=== PATIENT | female | born 1995 | race African-American/Black ===

== ENCOUNTER 2016-04-30 12:40 | Emergency (ER) | payer OTHER ==
[2016-04-30 12:54] VITALS: BP 127/71; PULSE 95; TEMP 98.6; BMI 22.3
[2016-04-30] MEDS ORDERED: PENICILLIN G BENZATHINE 1,200,000 UNIT/2 ML PFS IM ONE (13:11)
[2016-04-30] MEDS ORDERED: PENICILLIN G BENZATHINE 2,400,000 UNIT/4 ML PFS ONE (13:14)
--- NOTE | 2016-04-30 13:30 | PDOC ---
History of Present Illness - General Chief Complaint: Sore Throat Stated Complaint: SWOLLEN TONSILS, FEVER Time Seen by Provider: 04/30/16 13:10 History Source: Patient Exam Limitations: No Limitations - History of Present Illness Initial Comments: 04/30/16 13:19 With acute onset of sore throat pain starting yesterday. States took temperature last night was 101. States has had worsened swelling to her throat, is difficulty swallowing fluids but able to drink. Timing/Duration: unsure Severity: mild, moderate Associated Symptoms: reports: denies symptoms, cough, fever/chills, nausea/ vomiting Past History - Travel Traveled outside of the country in the last 30 days: No Close contact w/someone who was outside of country & ill: No - Past Medical History Allergies/Adverse Reactions: Allergies Allergy/AdvReac Type Severity Reaction Status Date / Time No Known Allergies Allergy Verified 04/30/16 12:54 Home Medications: Ambulatory Orders NK [No Known Home Medication] 12/31/14 Other medical history: denies - Psycho/Social/Smoking Cessation Hx Suicidal Ideation: No Smoking History: Never smoked Information on smoking cessation initiated: No Hx Alcohol Use: No Drug/Substance Use Hx: No Substance Use Type: None Review of Systems - Review of Systems Able to Perform ROS?: Yes Is the patient limited Maori proficient: Yes Constitutional: Yes: Symptoms Reported, See HPI, Fever, Loss of Appetite, Malaise HEENTM: Yes: Symptoms Reported, See HPI, Nose Congestion, Throat Pain, Difficulty Swallowing, Mouth Swelling Respiratory: Yes: See HPI. No: Symptoms reported, Cough Musculoskeletal: Yes: Symptoms Reported, Muscle Pain Integumentary: Yes: See HPI. No: Symptoms Reported Neurological: Yes: See HPI. No: Symptoms reported All Other Systems: Reviewed and Negative *Physical Exam - Vital Signs Last Vital Signs Temp Pulse Resp BP Pulse Ox 98.6 F 95 H 18 127/71 99 04/30/16 12:53 04/30/16 12:53 04/30/16 12:53 04/30/16 12:53 04/30/16 12:53 - Physical Exam Comments: 04/30/16 13:35 General Appearance: Yes: Nourished, Appropriately Dressed, Apparent Distress, Moderate Distress HEENT: positive: MARIANNA, TMs Normal (congested but landmarks easily visualized), Pharyngeal Erythema, Tonsillar Exudate, Tonsillar Erythema, Nasal Congestion, Rhinorrhea. negative: Pharynx Normal Neck: positive: Tender, Supple, Lymphadenopathy (R), Lymphadenopathy (L) Respiratory/Chest: positive: Lungs Clear, Normal Breath Sounds Gastrointestinal/Abdominal: positive: Tender, Soft. 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 We'll treat with Bicillin 1.2 million units IM, no reaction after 30 minutes *DC/Admit/Observation/Transfer Diagnosis at time of Disposition: Pharyngitis Qualifiers: Pharyngitis/tonsillitis etiology: unspecified etiology Qualified Code(s): J02.9 - Acute pharyngitis, unspecified - Discharge Dispostion Disposition: HOME Condition at time of disposition: Stable Admit: No - Patient Instructions Printed Discharge Instructions: DI for Pharyngitis/Tonsillopharyngitis -- Adult Additional Instructions: Rest, drink lots of fluids: Teas, water, soups Eat cold things: Ice cream, ice pops, ice chips Saltwater gargles Steamy showers/seem to face break up mucus Avoid contact with others until fevers and pain resolved Lots of handwashing and good hygiene, this is contagious You have been treated with Bicillin LA 1.2 million units injection which is a one-time treatment for strep pharyngitis. You will not need to take any further antibiotics. Tylenol or Motrin for fever and pain Followup with private physician in one to 2 days as needed if not improving Return to emergency department for worsened symptoms, fevers, dehydration - Post Discharge Activity Work/School Note: Back to School
== END 2016-04-30 13:44 | disposition home or self-care (01) ==
LOC: JERFT 12:40
DX: J02.9 Acute pharyngitis, unspecified (principal)
CPT/HCPCS: 96372; 99281-25

== ENCOUNTER 2017-05-25 20:10 | Emergency (ER) | payer OTHER ==
--- NOTE | 2017-05-25 20:22 | PDOC ---
Rapid Medical Evaluation Time Seen by Provider: 05/25/17 20:20 Medical Evaluation: Allergies Allergy/AdvReac Type Severity Reaction Status Date / Time No Known Allergies Allergy Verified 04/30/16 12:54 05/25/17 20:20 I have performed a brief in-person evaluation of this patient. The patient presents with a chief complaint of: , pt, took pill on tuesday morning - tried to get it reversed and was prescribed "lots of progesterone", now vaginal bleeding and cramping, "large clot came out", LMP 04/05 Pertinent physical exam findings: well appearing I have ordered the following: labs, tvus The patient will proceed to the ED for further evaluation. Discharge Disposition - Diagnosis Threatened - Referrals - Patient Instructions - Post Discharge Activity
[2017-05-25 20:24] VITALS: BP 115/65; PULSE 81; TEMP 98; BMI 22.1
[2017-05-25 21:13] LABS: BASO % 1.1 % (0-2.0); EOS % 4.2 % (0-4.5); HEMATOCRIT 36.8 % (32.4-45.2); HEMOGLOBIN 12.2 GM/dL (10.7-15.3); LYMPH % 15.6 % (8-40); MCH 27.2 pg (25.7-33.7); MCHC 33.2 g/dl (32.0-36.0); MEAN CELL VOLUME 81.9 fl (80-96); MONO % 8.1 % (3.8-10.2); PLATELET COUNT 207 K/MM3 (134-434); RBC 4.49 M/mm3 (3.60-5.2); RDW 13.3 % (11.6-15.6); WHITE BLOOD COUNT 11.7 K/mm3 (4.0-10.0)
--- NOTE | 2017-05-25 21:25 | PDOC ---
History of Present Illness - General History Source: Patient Exam Limitations: No Limitations - History of Present Illness Initial Comments: 05/25/17 21:47 The patient is a 21-year-old female who is 6-weeks , , who presents to the ED with abdominal cramping and vaginal bleeding. The patient reports taking the pill on Tuesday05/21/17 and subsequently on Tuesday decided that she wanted to keep the . Since Tuesday the patient has been taking high doses of progesterone. The patient denies any fever, chills, nausea, vomiting, or diarrhea. Denies any frequency, urgency, hesitancy, or dysuria. <Shannan Dyer - Last Filed: 05/25/17 21:46> - General History Source: Patient <Ayad Mejia - Last Filed: 05/26/17 19:43> - General Chief Complaint: Vaginal Bleeding Stated Complaint: VAGINAL BLEEDING (6WKS ) Time Seen by Provider: 05/25/17 20:20 Past History <Shannan Dyer - Last Filed: 05/25/17 21:46> - Suicide/Smoking/Psychosocial Hx Smoking History: Never smoked Have you smoked in the past 12 months: No Information on smoking cessation initiated: No Hx Alcohol Use: No Drug/Substance Use Hx: No Substance Use Type: None <Ayad Mejia - Last Filed: 05/26/17 19:43> - Past Medical History Allergies/Adverse Reactions: Allergies Allergy/AdvReac Type Severity Reaction Status Date / Time No Known Allergies Allergy Verified 05/26/17 18:44 Home Medications: Ambulatory Orders NK [No Known Home Medication] 12/31/14 Review of Systems - Review of Systems Able to Perform ROS?: Yes Comments:: 05/25/17 21:47 CONSTITUTIONAL: Absent: fever, chills, diaphoresis, generalized weakness, malaise, loss of appetite HEENT: Absent: rhinorrhea, nasal congestion, throat pain, throat swelling, difficulty swallowing, mouth swelling, ear pain, eye pain, visual Changes CARDIOVASCULAR: Absent: chest pain, syncope, palpitations, irregular heart rate, lightheadedness , peripheral edema RESPIRATORY: Absent: cough, shortness of breath, dyspnea with exertion, orthopnea, wheezing, stridor, hemoptysis GASTROINTESTINAL: Present: (+)Abdominal cramping Absent: abdominal distension, nausea, vomiting, diarrhea, constipation, melena, hematochezia GENITOURINARY: Present: (+)Vaginal bleeding. Absent: dysuria, frequency, urgency, hesitancy, hematuria, flank pain, genital pain MUSCULOSKELETAL: Absent: myalgia, arthralgia, joint swelling SKIN: Absent: rash, itching, pallor HEMATOLOGIC/IMMUNOLOGIC: Absent: easy bleeding, easy bruising, lymphadenopathy, frequent infections ENDOCRINE: Absent: unexplained weight gain, unexplained weight loss, heat intolerance, cold intolerance NEUROLOGIC: Absent: headache, focal weakness or paresthesias, dizziness, unsteady gait, seizure, mental status changes, bladder or bowel incontinence PSYCHIATRIC: Absent: anxiety, depression, suicidal or homicidal ideation, hallucinations. <Shannan Dyer - Last Filed: 05/25/17 21:46> *Physical Exam - Vital Signs Last Vital Signs Temp Pulse Resp BP Pulse Ox 98.0 F 81 16 115/65 100 05/25/17 20:21 05/25/17 20:21 05/25/17 20:21 05/25/17 20:21 05/25/17 20:21 - Physical Exam Comments: 05/25/17 21:48 GENERAL: Well developed, well nourished. Awake and alert. No acute distress. HEENT: Normocephalic, atraumatic. PERRLA, EOMI. No conjunctival pallor. Sclera are non- icteric. Moist mucous membranes. Oropharynx is clear. NECK: Supple. Full ROM. No JVD. Carotid pulses 2+ and symmetric, without bruits. No thyromegaly. No lymphadenopathy. CARDIOVASCULAR: Regular rate and rhythm. No murmurs, rubs, or gallops. Distal pulses are 2+ and symmetric. PULMONARY: No evidence of respiratory distress. Lungs clear to auscultation bilaterally. No wheezing, rales or rhonchi. ABDOMINAL: Soft. Non-tender. Non-distended. No rebound or guarding. No organomegaly. Normoactive bowel sounds. PELVIC: Will defer to pelvic US. MUSCULOSKELETAL Normal range of motion at all joints. No bony deformities or tenderness. No CVA tenderness. EXTREMITIES: No cyanosis. No clubbing. No edema. No calf tenderness. SKIN: Warm and dry. Normal capillary refill. No rashes. No jaundice. NEUROLOGICAL: Alert, awake, appropriate. PSYCHIATRIC: Cooperative. Good eye contact. Appropriate mood and affect. <Shannan Dyer - Last Filed: 05/25/17 21:46> - Vital Signs Last Vital Signs Temp Pulse Resp BP Pulse Ox 98.0 F 81 16 115/65 100 05/25/17 20:21 05/25/17 20:21 05/25/17 20:21 05/25/17 20:21 05/25/17 20:21 <Ayad Mejia - Last Filed: 05/26/17 19:43> ED Treatment Course - LABORATORY CBC & Chemistry Diagram: 05/25/17 21:08 05/25/17 21:08 - ADDITIONAL ORDERS Additional order review: 05/25/17 21:08 RBC 4.49 MCV 81.9 MCHC 33.2 RDW 13.3 MPV 8.0 Neutrophils % 71.0 Lymphocytes % 15.6 Monocytes % 8.1 Eosinophils % 4.2 Basophils % 1.1 <Shannan Dyer - Last Filed: 05/25/17 21:46> - LABORATORY CBC & Chemistry Diagram: 05/25/17 21:08 05/25/17 21:08 - ADDITIONAL ORDERS Additional order review: 05/25/17 21:08 RBC 4.49 MCV 81.9 MCHC 33.2 RDW 13.3 MPV 8.0 Neutrophils % 71.0 Lymphocytes % 15.6 Monocytes % 8.1 Eosinophils % 4.2 Basophils % 1.1 <Ayad Mejia - Last Filed: 05/26/17 19:43> Medical Decision Making - Medical Decision Making 05/26/17 19:43 Dr. Mejia: The scribe's documentation has been prepared under my direction and personally reviewed by me in its entirery. I confirm that the note above accurately reflects all work, treatment, procedures, and medical decision making performed by me. <Ayad Mejia - Last Filed: 05/26/17 19:43> *DC/Admit/Observation/Transfer - Attestations Scribe Attestion: 05/25/17 21:50 Documentation prepared by Shannan Dyer, acting as medical information officer for Ayad Mejia MD. <Shannan Dyer - Last Filed: 05/25/17 21:46> - Discharge Dispostion Admit: No <Ayad Mejia - Last Filed: 05/26/17 19:43> Diagnosis at time of Disposition: Threatened - Discharge Dispostion Disposition: HOME Condition at time of disposition: Stable - Referrals Referrals: Tru Barragan [Primary Care Provider] - - Patient Instructions Printed Discharge Instructions: DI for Threatened Additional Instructions: Please follow up with your criminal analyst tomorrow.. No heavy lifting or sexual relations until your criminal analyst says all is good. - Post Discharge Activity Forms/Work/School Notes: Back to Work
[2017-05-25 21:42] LABS: ALBUMIN 3.7 g/dl (3.4-5.0); ANION GAP 4 (8-16); BLOOD UREA NITROGEN 9 mg/dL (7-18); CALCIUM 8.9 mg/dL (8.5-10.1); CHLORIDE 103 mmol/L (98-107); CO2 28 mmol/L (21-32); CREATININE 0.5 mg/dL (0.55-1.02); GLUCOSE,RANDOM 87 mg/dL (74-106); POTASSIUM 3.9 mmol/L (3.5-5.1); SGOT/AST 18 U/L (15-37); SGPT/ALT 28 U/L (12-78); SODIUM 135 mmol/L (136-145); TOT PROT 7.7 g/dl (6.4-8.2)
[2017-05-25 21:59] LABS: ALK PHOS 43 U/L (45-117)
[2017-05-25 22:01] LABS: BILIRUBIN,TOTAL < 0.1 mg/dL (0.2-1.0)
== END 2017-05-25 23:26 | disposition home or self-care (01) ==
LOC: JER 20:10
DX: O26.891 Other specified pregnancy related conditions, first trimester (principal); O20.0 Threatened abortion; Z3A.01 Less than 8 weeks gestation of pregnancy
CPT/HCPCS: 36415; 76817-TC; 80053; 84702; 85025; 86850; 86900; 86901; 99282-25

== ENCOUNTER 2017-05-26 18:34 | Inpatient (IN) | payer OTHER ==
[2017-05-26 18:44] VITALS: BMI 23.0
--- NOTE | 2017-05-26 18:44 | PDOC ---
Rapid Medical Evaluation Chief Complaint: Vaginal Bleeding Time Seen by Provider: 05/26/17 18:41 Medical Evaluation: Allergies Allergy/AdvReac Type Severity Reaction Status Date / Time No Known Allergies Allergy Verified 05/25/17 20:24 05/26/17 18:43 I have performed a brief in-person evaluation of this patient. The patient presents with a chief complaint of: repeat visit, 6 wks , seen yesterday for vaginal bleeding and cramping, "large clot came out", LMP , US showed twin with 1 demise Pertinent physical exam findings: uncomfortable appearing I have ordered the following: labs, tvus The patient will proceed to the ED for further evaluation. Discharge Disposition - Diagnosis Miscarriage - Referrals - Patient Instructions - Post Discharge Activity
--- NOTE | 2017-05-26 20:14 | PDOC ---
History of Present Illness - General Chief Complaint: Vaginal Bleeding Stated Complaint: VAGINAL BLEEDING Time Seen by Provider: 05/26/17 18:41 - History of Present Illness Initial Comments: 05/26/17 22:43 21-year-old female with 8 week twin and demise twin A currently on progesterone after taking " pills" to miscarry returns to the ER today with severe vaginal bleeding. Patient was seen by WASHTUB WORKER at [facility] and was advised to follow-up within 1 week. Patient also reports some left pelvic pain. Denies fever/ chills, NVD, Abdominal pain Patient was seen in the ED yesterday fro similar complaints. Past History - Past Medical History Allergies/Adverse Reactions: Allergies Allergy/AdvReac Type Severity Reaction Status Date / Time No Known Allergies Allergy Verified 05/26/17 18:44 Home Medications: Ambulatory Orders NK [No Known Home Medication] 12/31/14 COPD: No DVT: No - Reproductive History (#): 1 Para: 0 Therapeutic (s) & number: No Spontaneous : 0 - Suicide/Smoking/Psychosocial Hx Smoking History: Never smoked Have you smoked in the past 12 months: No Information on smoking cessation initiated: No Hx Alcohol Use: No Drug/Substance Use Hx: No Substance Use Type: None Review of Systems - Review of Systems Able to Perform ROS?: Yes Is the patient limited Khmer proficient: No Constitutional: No: Symptoms Reported, See HPI, Chills, Diaphoresis, Fever, Loss of Appetite, Malaise, Night Sweats, Weakness, Weight Stable, Unintentional Wgt. Loss, Unexplained wgt Loss, Other ABD/GI: Yes: Abdominal cramping : No: Symptoms Reported, See HPI, Burning, Dysuria, Discharge, Frequency, Flank Pain, Hematuria, Incontinence, Pain, Urgency, Testicular Mass, Testicular Swelling, Lesions, Testicular Pain, Other *Physical Exam - Vital Signs Last Vital Signs Temp Pulse Resp BP Pulse Ox 97.9 F 86 18 117/66 100 05/26/17 18:42 05/26/17 18:42 05/26/17 18:42 05/26/17 18:42 05/26/17 18:42 - Physical Exam General Appearance: Yes: Appropriately Dressed Respiratory/Chest: positive: Lungs Clear, Normal Breath Sounds Female Pelvic Exam: positive: normal external exam, adnexal tenderness (left adnexal tenderness), vaginal bleeding (with clots in vaginal vault. ), other ( cervical os ~ 1 cm open) Gastrointestinal/Abdominal: positive: Normal Bowel Sounds, Soft. 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 mccabe. recommends d/c at this time if hemodynamically stable. recommends outpatient follow up. 05/26/17 21:53 hgb 11.2 will repeat at 11.30 pm. is stabel will dc home with strict return precaution 05/27/17 01:[address] mccabe . recommends pitocin 20 unit in 1000ml to run at 150 ml / hr. likely need admission if products of conception is retained. 05/27/17 03:46 patient reports cramping. + vaginal bleeding and large clots. will admit to the hospital for inpatient management. patient admitted under Dr. Iniguez's service, *DC/Admit/Observation/Transfer Diagnosis at time of Disposition: Miscarriage, Vaginal bleeding - Discharge Dispostion Admit: Yes - Referrals - Patient Instructions - Post Discharge Activity
[2017-05-26 20:17] LABS: BASO % 0.3 % (0-2.0); EOS % 1.6 % (0-4.5); HEMATOCRIT 33.4 % (32.4-45.2); HEMOGLOBIN 11.2 GM/dL (10.7-15.3); LYMPH % 6.8 % (8-40); MCH 27.5 pg (25.7-33.7); MCHC 33.5 g/dl (32.0-36.0); MEAN CELL VOLUME 81.9 fl (80-96); MEAN PLT VOLUME 8.8 fl (7.5-11.1); MONO % 5.5 % (3.8-10.2); NEUT % 85.8 % (42.8-82.8); PLATELET COUNT 198 K/MM3 (134-434); RBC 4.07 M/mm3 (3.60-5.2); RDW 13.6 % (11.6-15.6); WHITE BLOOD COUNT 14.1 K/mm3 (4.0-10.0)
[2017-05-26] MEDS ORDERED: ACETAMINOPHEN 1000 MG/100 ML VIAL (NON FORMULARY) IVPB ONE (20:36)
[2017-05-26] MEDS ORDERED: SODIUM CHLORIDE 1,000 ML IV STA (20:36)
[2017-05-26] MEDS ORDERED: ACETAMINOPHEN INJECTION 100 ML IVPB ONE (20:49)
[2017-05-26 22:10] LABS: URINE APPEARANCE SLCLOUDY; URINE BILIRUBIN NEGATIVE (<2.0 mg/dL); URINE BLOOD 3+ (NEGATIVE); URINE COLOR LTYELLOW; URINE GLUCOSE (UA) NEGATIVE (NEGATIVE); URINE KETONE TRACE (NEGATIVE); URINE LEUK ESTERASE NEGATIVE (NEGATIVE); URINE NITRITE NEGATIVE (NEGATIVE); URINE PROTEIN NEGATIVE (NEGATIVE); URINE UROBILINOGEN NEGATIVE mg/dL (0.2-1.0)
[2017-05-26 22:14] LABS: EPI CELLS RARE /HPF (FEW); URINE MUCUS RARE
[2017-05-26] MEDS ORDERED: morphine CARPU-JECT 4 MG/1 ML DISP.SYRIN IVPUSH ONE (22:26)
[2017-05-26] MEDS ORDERED: morphine SULFATE 4 MG/ML VIAL ONE (22:29)
[2017-05-27 00:59] LABS: HEMATOCRIT 28.2 % (32.4-45.2); HEMOGLOBIN 9.3 GM/dL (10.7-15.3); MCH 27.1 pg (25.7-33.7); MCHC 33.1 g/dl (32.0-36.0); MEAN CELL VOLUME 81.9 fl (80-96); MEAN PLT VOLUME 8.1 fl (7.5-11.1); PLATELET COUNT 178 K/MM3 (134-434); RBC 3.45 M/mm3 (3.60-5.2); RDW 13.3 % (11.6-15.6); WHITE BLOOD COUNT 13.3 K/mm3 (4.0-10.0)
[2017-05-27] MEDS ORDERED: OXYTOCIN 20 UNITS in 0.9% NS 20 UNIT/1,000 ML INFUS.BAG IV SCH ×2 (01:30→08:45)
[2017-05-27] MEDS ORDERED: HYDROmorphone HCL CARPU-JECT 1 MG/1 ML DISP.SYRIN IVPUSH ONE (01:47)
[2017-05-27] MEDS ORDERED: morphine CARPU-JECT 4 MG/1 ML DISP.SYRIN IVPUSH ONE (02:02)
[2017-05-27] MEDS ORDERED: OXYTOCIN 10 UNITS/ML VIAL ONE (02:02)
[2017-05-27] MEDS ORDERED: morphine SULFATE 4 MG/ML VIAL ONE (02:06)
[2017-05-27] MEDS ORDERED: ACETAMINOPHEN 1000 MG/100 ML VIAL (NON FORMULARY) IVPB ONE (06:20)
--- NOTE | 2017-05-27 06:29 | HP ---
Past Medical History - Primary Care Physician PCP:: Gurmeet Ferrera - Admission Chief Complaint: twin , 6 weeks, impending , vaginal bleeding History of Present Illness: 21 yo f with twing 6 weeks, c/o vaginal bleeding and clots with cramps ,sono twins ,non viable low uterine segment History Source: Patient Limitations to Obtaining History: No Limitations - Past Medical History ...: 1 ...Para: 0 Heme/Onc: Yes: Anemia - Past Surgical History Hx Myomectomy: No Hx Transabdominal Cerclage: No - Smoking History Smoking history: Never smoked Have you smoked in the past 12 months: No - Alcohol/Substance Use Hx Alcohol Use: No - Social History Usual Living Arrangement: Yes: With Spouse History of Recent Travel: No Home Medications - Allergies Allergies/Adverse Reactions: Allergies Allergy/AdvReac Type Severity Reaction Status Date / Time No Known Allergies Allergy Verified 05/26/17 18:44 - Home Medications Home Medications: Ambulatory Orders NK [No Known Home Medication] 12/31/14 Review of Systems - Review of Systems Constitutional: reports: No Symptoms Eyes: reports: No Symptoms HENT: reports: No Symptoms Neck: reports: No Symptoms Cardiovascular: reports: No Symptoms Respiratory: reports: No Symptoms Gastrointestinal: reports: Abdominal Pain Genitourinary: reports: No Symptoms, Vaginal Bleeding Breasts: reports: No Symptoms Reported Musculoskeletal: reports: No Symptoms Integumentary: reports: No Symptoms Neurological: reports: No Symptoms Endocrine: reports: No Symptoms Hematology/Lymphatic: reports: No Symptoms Psychiatric: reports: No Symptoms Physical Exam-VERTICAL BORER Vital Signs: Vital Signs Temperature 97.9 F 05/27/17 05:49 Pulse Rate 79 05/27/17 05:49 Respiratory Rate 20 05/27/17 05:49 Blood Pressure 98/55 05/27/17 05:49 O2 Sat by Pulse Oximetry (%) 100 05/26/17 23:12 Constitutional: Yes: Well Nourished, No Distress, Calm Eyes: Yes: WNL, Conjunctiva Clear, EOM Intact HENT: Yes: WNL, Atraumatic, Normocephalic Neck: Yes: WNL, Supple, Trachea Midline Cardiovascular: Yes: WNL, Regular Rate and Rhythm Respiratory: Yes: WNL, Regular, CTA Bilaterally Gastrointestinal: Yes: WNL ...Rectal Exam: Yes: WNL Renal/: Yes: WNL Vaginal Exam: Yes: Bleeding Cervix: Yes: Bleeding (os open, with POC at os) Uterus: Yes: Enlarged (8 weeks, tender) Adnexa: Not Palpable: Left, Right Breast(s): Yes: WNL Musculoskeletal: Yes: WNL Extremities: Yes: WNL Edema: No Integumentary: Yes: WNL Neurological: Yes: WNL, Alert, Oriented ...Motor Strength: WNL Psychiatric: Yes: WNL, Alert, Oriented Labs: CBC, BMP 05/27/17 00:48 Problem List - Problem (1) Miscarriage Code(s): O03.9 - COMPLETE OR UNSP SPONTANEOUS WITHOUT COMPLICATION (2) Anemia Code(s): D64.9 - ANEMIA, UNSPECIFIED Qualifiers: Anemia type: iron deficiency Assessment/Plan plan admit, pitocin, , rba discussed, if does not pass tissue, cont .to bleed needs D&C
[2017-05-27] MEDS ORDERED: ONDANSETRON 4 MG/2 ML VIAL IVPUSH PRN ×2 (08:41→08:53)
[2017-05-27] MEDS ORDERED: IBUPROFEN 800 MG/8 ML IJ IVPB PRN (08:41)
[2017-05-27] MEDS ORDERED: IBUPROFEN 600 MG TABLET (FP) PO PRN (08:41)
[2017-05-27] MEDS ORDERED: oxyCODONE HCL 5 MG TABLET PO PRN (08:41)
[2017-05-27] MEDS ORDERED: ELECTROLYTE-148 SOLN 1,000 ML IV SCH (08:45)
[2017-05-27] MEDS ORDERED: MIDAZOLAM HCL 2 MG/2 ML SINGLE DOSE VIAL ONE (08:58)
[2017-05-27] MEDS ORDERED: LACTATED RINGERS SOLUTION 1,000 ML IV SCH (09:00)
[2017-05-27] MEDS ORDERED: PROPOFOL 20 ML ONE (09:01)
[2017-05-27] MEDS ORDERED: SUCCINYLCHOLINE CHLORIDE 200 MG/10 ML VIAL ONE (09:02)
[2017-05-27] MEDS ORDERED: ceFAZolin SODIUM 1 GM VIAL IVPB ONE (09:07)
[2017-05-27] MEDS ORDERED: DEXAMETHASONE SOD PHOSPHATE 4 MG/1 ML VIAL ONE (09:08)
[2017-05-27] MEDS ORDERED: LIDOCAINE HCL/PF 2% SDV 5ML VIAL ONE (09:08)
[2017-05-27] MEDS ORDERED: ceFAZolin SODIUM 1 GM VIAL ONE (09:08)
[2017-05-27] MEDS ORDERED: KETOROLAC TROMETHAMINE 30 MG/1 ML VIAL ONE (09:08)
[2017-05-27 11:29] VITALS: PULSE 84
[2017-05-27 14:27] VITALS: BP 102/58; TEMP 98.3
--- NOTE | 2017-05-30 14:55 | PATH ---
Surgical Pathology Report Patient Name: ERAM AGUAYO Med. Rec. 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 Specimen(s) Received PRODUCTS OF CONCEPTION Clinical History Threatened Final Diagnosis PRODUCTS OF CONCEPTION, SUCTION DILATATION AND CURETTAGE: IMMATURE CHORIONIC VILLI, DECIDUA, AND GESTATIONAL ENDOMETRIUM CONSISTENT WITH PRODUCTS OF CONCEPTION. Electronically Signed Steph Purvis M.D. Gross Description Received in formalin labeled "contents of conception," is an 11.5 x 11.0 x 1.2 cm aggregate of red soft tissue fragments admixed with blood clot. No definite villous tissue or somatic tissue is identified. A strategic partnership representative portion is submitted in 3 cassettes. /05/27/[address] [facility]/05/27/2017
--- NOTE | 2017-05-31 12:57 | OP ---
DATE OF OPERATION: 05/27/2017 PREOPERATIVE DIAGNOSIS: Twin 6 weeks, impending , vaginal bleeding, and anemia. POSTOPERATIVE DIAGNOSIS: Twin 6 weeks, impending , vaginal bleeding, and anemia. PROCEDURE: Suction curettage. SURGEON: Gurmeet Ferrera MD ANESTHESIA: General. ESTIMATED BLOOD LOSS: 150 mL. DESCRIPTION OF PROCEDURE: The patient was taken to the operating room under adequate general anesthesia. Examination under anesthesia revealed external genitalia to be normal. Vagina some moderate bleeding from os. Os was opened. Blood clot was seen at the os. Uterus was 8 weeks' size. Adnexa, no masses were palpable. Then with a polyp forceps, the products of conception was removed from the os and lower uterine segment, and suction was introduced into the uterine cavity, and the contents were suctioned. The patient tolerated the procedure well and left the OR in good condition. GURMEET FERRERA M.D. [id number]
== END 2017-05-27 15:15 | disposition home or self-care (01) | DRG 544 ==
LOC: JER 18:34 → JERBED 21:57 → OBSVTOIN 21:57 → J3W 05-27 05:23
PROVIDERS: ADMIT Internal Medicine; ATTEND Family Medicine
PROC: 10D17ZZ Extraction of Products of Conception, Retained, Via Natural or Artificial Opening (ICD-10-PCS; principal; 2017-05-27 10:00)
DX: O03.4 Incomplete spontaneous abortion without complication (principal); D50.9 Iron deficiency anemia, unspecified
CPT/HCPCS: 36415; 76817-TC; 81003; 81015; 84702; 85025; 85027; 86850; 86900; 86901; 87086; 88305-TC; 94760; 99284-25; J0131; J7030

== ENCOUNTER 2018-03-22 09:21 | Emergency (ER) | payer OTHER ==
[2018-03-22 09:26] VITALS: BP 109/56; PULSE 73; TEMP 98; BMI 22.3
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
== END 2018-03-22 12:02 | disposition home or self-care (01) ==
LOC: JERFT 09:21
DX: M54.5 Low back pain (principal); S13.4XXA Sprain of ligaments of cervical spine, initial encounter; V43.62XA Car passenger injured in collision with other type car in traffic accident, initial encounter; Y93.89 Activity, other specified; Y92.410 Unspecified street and highway as the place of occurrence of the external cause
CPT/HCPCS: 72050-TC-FY; 72100-TC-FY; 84703; 99281-25

== ENCOUNTER 2018-04-18 09:16 | Day surgery (SDC) | payer OTHER ==
[2018-04-18 09:30] VITALS: BMI 23.1
--- NOTE | 2018-04-18 10:14 | PDOC ---
History of Present Illness - General Chief Complaint: Bone Injury Stated Complaint: LF HAND INJURY Time Seen by Provider: 04/18/18 09:34 History Source: Patient Exam Limitations: No Limitations Past History - Travel Traveled outside of the country in the last 30 days: No Close contact w/someone who was outside of country & ill: No - Past Medical History Allergies/Adverse Reactions: Allergies Allergy/AdvReac Type Severity Reaction Status Date / Time No Known Allergies Allergy Verified 04/18/18 09:30 Home Medications: Ambulatory Orders Cephalexin [Keflex] 500 mg PO QID 5 Days #20 capsule 04/18/18 Oxycodone HCl/Acetaminophen [Percocet 5/325 -] 1 - 2 tab PO Q6H #40 tab MDD 5 Anemia: No Asthma: No Cancer: No Cardiac Disorders: No CVA: No COPD: No CHF: No DVT: No Dementia: No Diabetes: No GI Disorders: No Disorders: No HTN: No Hypercholesterolemia: No Liver Disease: No Seizures: No Thyroid Disease: No - Surgical History Abdominal Surgery: No Appendectomy: No Cardiac Surgery: No Cholecystectomy: No Lung Surgery: No Neurologic Surgery: No Orthopedic Surgery: No - Reproductive History (#): 1 Para: 0 Therapeutic (s) & number: No Spontaneous : 0 - Suicide/Smoking/Psychosocial Hx Smoking History: Never smoked Have you smoked in the past 12 months: No Hx Alcohol Use: No Drug/Substance Use Hx: No Substance Use Type: None Review of Systems - Review of Systems Able to Perform ROS?: Yes Comments:: 04/18/18 12:42 CONSTITUTIONAL: Absent: fever, chills, diaphoresis, generalized weakness, malaise, loss of appetite MUSCULOSKELETAL: Present: L 3rd finger pain and bleeding SKIN: Present: laceration Absent: rash, itching, pallor HEMATOLOGIC/IMMUNOLOGIC: Absent: easy bleeding, easy bruising, lymphadenopathy, frequent infections ENDOCRINE: Absent: unexplained weight gain, unexplained weight loss, heat intolerance, cold intolerance NEUROLOGIC: Absent: headache, focal weakness or paresthesias, dizziness, unsteady gait, seizure, mental status changes, bladder or bowel incontinence PSYCHIATRIC: Absent: anxiety, depression, suicidal or homicidal ideation, hallucinations. 04/18/18 12:44 Is the patient limited Latvian proficient: No *Physical Exam - Vital Signs Last Vital Signs Temp Pulse Resp BP Pulse Ox 97.5 F L 89 18 118/69 100 04/18/18 09:29 04/18/18 09:29 04/18/18 09:29 04/18/18 09:29 04/18/18 09:29 - Physical Exam Comments: 04/18/18 12:45 GENERAL: The patient is awake, alert, and fully oriented, in no acute distress. HEAD: Normal with no signs of trauma. EYES: Pupils equal, round and reactive to light, extraocular movements intact, sclera anicteric, conjunctiva clear. EXTREMITIES: Normal range of motion, no edema. NEUROLOGICAL: Normal speech, normal gait. PSYCH: Normal mood, normal affect. SKIN: Macerated distal 3rd nail bed. Nail ripped from nail bed. Wound irragated and explored. Open jaqueline fracture. Warm, Dry, normal turgor, no rashes or lesions noted. Moderate Sedation - Procedure Monitoring Vital Signs: Procedure Monitoring Vital Signs Temperature 97.5 F L 04/18/18 09:29 Pulse Rate 89 04/18/18 09:29 Respiratory Rate 18 04/18/18 09:29 Blood Pressure 118/69 04/18/18 09:29 O2 Sat by Pulse Oximetry (%) 100 04/18/18 09:29 ED Treatment Course - LABORATORY CBC & Chemistry Diagram: 04/18/18 11:37 04/18/18 11:37 Medical Decision Making - Medical Decision Making 04/18/18 12:33 Patient is a 22-year-old female in no past medical history who presents to the ER today for left third finger pain. Patient states that she works at the [employer]. 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 She states that it immediately started bleeding. She noticed that the nail had been ripped from the finger. She states that the pain is a 10 out of 10. Denies numbness and tingling in the extremity, weakness the extremity, fevers and chills. Patient does not murmur the date of her last tetanus shot. Last oral intake was 8 PM last night. A: L 3rd finger pain X-ray Digital block, Finger tournaquet applied Stellate laceration at the base of the nail bed with open jaqueline fracture, unable to correctly approximate laceration at this time P: Hand surgery called; Dr. Horton will take to OR for VY flap Tetanus updated 1 gram ancef given Pre-op labs drawn Admitted to [facility] to Dr. Horton *DC/Admit/Observation/Transfer Diagnosis at time of Disposition: Open fracture of tuft of distal phalanx of finger - Discharge Dispostion Condition at time of disposition: Improved Decision to Admit order: Yes - Prescriptions - Referrals - Patient Instructions - Post Discharge Activity
[2018-04-18] MEDS ORDERED: IBUPROFEN 600 MG TABLET (FP) PO ONE ×2 (10:15→10:52)
[2018-04-18] MEDS ORDERED: DIPHTH,PERTUSS(ACELL),TET 0.5 ML DISP.SYRIN IM ONE ×2 (10:16→10:53)
[2018-04-18] MEDS ORDERED: CEFAZOLIN 1 GM in DEXTROSE 5%-WATER - 50 ML IVPB ONE (10:42)
[2018-04-18] MEDS ORDERED: CEFAZOLIN 1 GM/D5W 1 GM/50 ML BAG ONE (10:55)
[2018-04-18 12:06] LABS: BASO % 0.7 % (0-2.0); EOS % 4.3 % (0-4.5); HEMATOCRIT 36.3 % (32.4-45.2); HEMOGLOBIN 12.3 GM/dL (10.7-15.3); LYMPH % 15.9 % (8-40); MCH 27.7 pg (25.7-33.7); MCHC 33.9 g/dl (32.0-36.0); MEAN CELL VOLUME 81.7 fl (80-96); MEAN PLT VOLUME 8.7 fl (7.5-11.1); MONO % 6.5 % (3.8-10.2); NEUT % 72.6 % (42.8-82.8); PLATELET COUNT 203 K/MM3 (134-434); RBC 4.44 M/mm3 (3.60-5.2); RDW 14.2 % (11.6-15.6); WHITE BLOOD COUNT 6.3 K/mm3 (4.0-10.0)
[2018-04-18] MEDS ORDERED: LACTATED RINGERS SOLUTION 1,000 ML IV SCH ×2 (12:15→16:00)
[2018-04-18 12:28] LABS: INR 0.98 (0.83-1.09); PROTHROMBIN TIME (PATIENT) 11.6 SEC (9.7-13.0)
--- NOTE | 2018-04-18 12:28 | DS ---
Physical Examination Vital Signs: Vital Signs Temperature 97.5 F L 04/18/18 09:29 Pulse Rate 89 04/18/18 09:29 Respiratory Rate 18 04/18/18 09:29 Blood Pressure 118/69 04/18/18 09:29 O2 Sat by Pulse Oximetry (%) 100 04/18/18 09:29 Findings/Remarks: stable post opertively, tolertaing diet Constitutional: Yes: Well Nourished, No Distress, Calm Eyes: Yes: Conjunctiva Clear, EOM Intact HENT: Yes: Atraumatic, Normocephalic Neck: Yes: Supple, Trachea Midline Cardiovascular: Yes: Regular Rate and Rhythm, S1, S2 Respiratory: Yes: Regular, CTA Bilaterally Gastrointestinal: Yes: Normal Bowel Sounds, Soft. No: Abdomen, Obese, Tenderness ...Rectal Exam: Yes: Deferred Renal/: No: CVA Tenderness - Left, CVA Tenderness - Right Extremities: No: Cool, Cyanosis Edema: No Peripheral Pulses WNL: Yes Peripheral Pulses: Left Radial: 2+, Right Radial: 2+, Left Doralis Pedis: 2+, Right Dorsalis Pedis: 2+, Left Femoral: 2+, Right Femoral: 2+ Wound/Incision: Yes: Clean/Dry, Well Approximated, Dressing Dry and Intact Neurological: Yes: Alert, Oriented Psychiatric: Yes: Alert, Oriented Labs: CBC, BMP 04/18/18 11:37 Discharge Summary Reason For Visit: OPEN FRACTURE OF TUFT OF DISTAL PHALANX OF FINGER Current Active Problems Open fracture of tuft of distal phalanx of finger (Acute) Procedures: Principal: left middle finger V-Y flap reconstruction and nailbed repair Hospital Course: admitted for surgery. uneventul procedure. stable for discharge home Condition: Improved - Instructions Diet, Activity, Other Instructions: Postoperative instructions: You had a tip repair left middle finger on [address] Faizan Horton of [facility]. Activity: Resume your usual activities gradually, but no heavy exertion or lifting more than 10-15 pounds for 4-6 weeks. Remove dressings 48 hours after surgery, if they are not already off. You may shower daily starting then, just pat the incision areas dry. No bath or swimming until skin incisions have healed. Juan should not need to be recovered with any dressings, unless you have been told otherwise. Eat lightly at first, but advance to your usual diet as tolerated. Pain: For pain, you may use and alternate Tylenol (acetaminophen) 1-2 pills and/ or ibuprofen 200 mg (1-3 pills) every 6 hours each as needed; this means that you can take one OR the other at 3-hour intervals. If you are prescribed a Tylenol/narcotic combination for severe pain, use it instead of plain Tylenol as needed and switch back when your pain starts decreasing. Do not take more than 4000 mg of acetaminophen in a day. Take medications as prescribed or indicated on the labeling. Follow-up: Call Dr. Horton' office at [phone] to make your postop appointment (Tuesday in approximately 2 weeks after surgery as advised). Clinic is held in the [facility] on the first floor of [facility]. Call the office if you have: * increasing pain not responsive to pain medication * fever of 101F or higher * vomiting * unusual or increasing bleeding or drainage from wounds * increasing redness or swelling at wound sites * inability to urinate Also, see your primary medical doctor within 1-2 weeks. Referrals: Lazaro Fermin MD [Primary Care Provider] - Disposition: HOME - Home Medications Comprehensive Discharge Medication List: Ambulatory Orders Cephalexin [Keflex] 500 mg PO QID 5 Days #20 capsule 04/18/18 Oxycodone HCl/Acetaminophen [Percocet 5325 -] 1 - 2 tab PO Q6H #40 tab MDD 5
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
--- NOTE | 2018-04-18 12:28 | OP ---
Operative Note - Note: Operative Date: 04/18/18 Pre-Operative Diagnosis: left middle finger distal phalanx open frature distal 1 /3 Operation: Left middle finger nailbed repair, V-Y flap reconstruction of distal tip Findings: left middle finger Open distal 1/3 fracture, Post-Operative Diagnosis: Same as Pre-op Surgeon: Faizan Horton Anesthesiologist/AIRCRAFT SYSTEMS TECHNICIAN: Cornell Lee Anesthesia: Local, MAC Specimens Removed: none Estimated Blood Loss (mls): 2 Fluid Volume Replaced (mls): 300 Operative Report Dictated: Yes
[2018-04-18 12:41] LABS: ALBUMIN 3.7 g/dl (3.4-5.0); ALK PHOS 58 U/L (45-117); ANION GAP 5 MMOL/L (8-16); BILIRUBIN,TOTAL 0.5 mg/dL (0.2-1); BLOOD UREA NITROGEN 5 mg/dL (7-18); CALCIUM 8.8 mg/dL (8.5-10.1); CHLORIDE 103 mmol/L (98-107); CO2 26 mmol/L (21-32); CREATININE 0.5 mg/dL (0.55-1.3); GLUCOSE,RANDOM 85 mg/dL (74-106); POTASSIUM 4.3 mmol/L (3.5-5.1); SGOT/AST 25 U/L (15-37); SGPT/ALT 21 U/L (13-61); SODIUM 134 mmol/L (136-145); TOT PROT 7.7 g/dl (6.4-8.2)
[2018-04-18] MEDS ORDERED: DEXMEDETOMIDINE HCL 200 MCG/2 ML IVPB ONE (14:52)
[2018-04-18] MEDS ORDERED: DESFLURANE GAS 240 ML BOTTLE IH ONE (14:56)
[2018-04-18] MEDS ORDERED: MIDAZOLAM HCL 2 MG/2 ML SINGLE DOSE VIAL ONE (15:02)
[2018-04-18] MEDS ORDERED: PROPOFOL 20 ML ONE ×2 (15:02→15:53)
[2018-04-18] MEDS ORDERED: LIDOCAINE HCL/PF 2% SDV 5ML VIAL ONE (15:02)
[2018-04-18] MEDS ORDERED: SUCCINYLCHOLINE CHLORIDE 200 MG/10 ML VIAL ONE (15:02)
[2018-04-18] MEDS ORDERED: DEXAMETHASONE SOD PHOSPHATE 4 MG/1 ML VIAL ONE (15:02)
[2018-04-18] MEDS ORDERED: BUPIVACAINE HCL/PF 0.5% (5MG/ML) 10 ML VIAL ONE (15:03)
[2018-04-18] MEDS ORDERED: LIDOCAINE HCL 1%, 10 MG/ML (20ML VIAL) ONE (15:03)
[2018-04-18] MEDS ORDERED: ceFAZolin SODIUM 1 GM VIAL IVPB ONE (15:37)
[2018-04-18] MEDS ORDERED: ONDANSETRON 4 MG/2 ML VIAL IVPUSH PRN (15:58)
[2018-04-18] MEDS ORDERED: BACITRACIN 15 GM TUBE TOPICAL OINTMENT ONE (16:04)
[2018-04-18] MEDS ORDERED: LIDOCAINE HCL 1%, 10 MG/ML (20ML VIAL) INF ONE (16:20)
[2018-04-18] MEDS ORDERED: BUPIVACAINE HCL/PF 0.5% (5MG/ML) 10 ML VIAL IJ ONE (16:20)
[2018-04-18 17:31] VITALS: TEMP 98
[2018-04-18 18:19] VITALS: BP 106/68; PULSE 81
--- NOTE | 2018-04-19 13:00 | OP ---
DATE OF OPERATION: 04/18/2018 PREOPERATIVE DIAGNOSIS: Left middle finger distal phalanx open tuft fracture. POSTOPERATIVE DIAGNOSIS: Left middle finger distal phalanx open tuft fracture. PROCEDURE: Left middle fingernail repair and V-Y flap reconstruction of the distal tip. ATTENDING SURGEON: Faizan Horton MD DRYWALL FINISHING FOREMAN: None. ANESTHESIOLOGIST: Cornell Lee CRNA ANESTHESIA: Local, MAC. Local consisted of 0.5% Marcaine a total of 10 mL given in digital block fashion. ESTIMATED BLOOD LOSS: 2 mL. INTRAVENOUS FLUIDS ADMINISTERED: 300 mL. IMPLANTS: None. SPECIMEN: None. BRIEF FINDINGS: Patient had a left middle finger open distal one-third fracture with 90% nailbed laceration, avulsion, and distal tip avulsion as well. She was counseled regarding risks, benefits, alternatives of surgical procedure purposed. Signed informed consent and was taken for procedure. DESCRIPTION OF PROCEDURE: Patient was brought to the operating room. She was placed in supine position on the operating table. The lower extremities had SCDs placed to compression. She was induced with sedation and provided supplemental oxygen. At which point, we began first with a formal timeout identifying the operative site and procedure. With this done, the site was irrigated of hematoma. The nailbed laceration was debrided of clot, and at this point, it was clear there was a 90% laceration which was irregular long the border with avulsion of the lunula. The area over the distal phalanx was then cleared. Bony fragments of distal tuft were debrided as well. Care was taken then to approximate the nailbed laceration using 5-0 chromic in interrupted fashion along the length. The eponychial fold was then splinted with an aluminum from the package. The distal tip then had a V incision in the pad made to allow for advancement of the distal pad over the tip which appeared avulsed and had exposed window for bony fragments. The flap was advanced, and the area was closed in a Y fashion with interrupted 4-0 nylons. Skin was cleaned. Sterile dressings were placed including Xeroform, 4 x 4 gauze, and Coban. Patient was awoken from general anesthesia and tolerated the procedure well, given instructions to follow in a period of 1 week. MD STEVENSON Lopez/[id number]
--- NOTE | 2018-04-22 18:12 | EKG ---
Test Reason : Blood Pressure : / mmHG Vent. Rate : 070 BPM Atrial Rate : 070 BPM P-R Int : 112 ms QRS Dur : 078 ms QT Int : 392 ms P-R-T Axes : 023 076 027 degrees QTc Int : 423 ms NORMAL SINUS RHYTHM NORMAL ECG NO PREVIOUS ECGS AVAILABLE Confirmed by MD ANNIE, GAYE ([id number]) on 04/22/2018 6:12:02 PM Referred By: RS Confirmed By:GAYE VALENCIA MD
== END 2018-04-18 18:15 | disposition home or self-care (01) ==
LOC: JERFT 09:16 → JASUSAT 12:06
CPT/HCPCS: 36415; 73130-TC-LT-FY; 80053; 84703; 85025; 85610; 86850; 86900; 86901; 90715; 93005; 93010; 94760; 99281-25

== ENCOUNTER 2018-04-23 12:33 | Emergency (ER) | payer OTHER ==
[2018-04-23 12:51] VITALS: BP 99/56; PULSE 62; TEMP 98.4; BMI 23.1
--- NOTE | 2018-04-23 13:15 | PDOC ---
Suture Removal/Wound Check HPI - History of Present Illness Chief Complaint: Revisit,Wound Recheck Stated Complaint: POST SURGERY / LT MIDDLE Time Seen by Provider: 04/23/18 12:53 History Source: Yes: Patient Exam Limitations: Yes: No Limitations - Previous ED Treatment Type of procedure performed on last visit: Yes: Laceration Repair Tetanus Immunization: Yes: Up to Date Past History - Travel Traveled outside of the country in the last 30 days: No Close contact w/someone who was outside of country & ill: No - Past Medical History Allergies/Adverse Reactions: Allergies Allergy/AdvReac Type Severity Reaction Status Date / Time No Known Allergies Allergy Verified 04/23/18 12:51 Home Medications: Ambulatory Orders Cephalexin [Keflex] 500 mg PO QID 5 Days #20 capsule 04/18/18 Oxycodone HCl/Acetaminophen [Percocet 5/325 -] 1 - 2 tab PO Q6H #40 tab MDD 5 Anemia: No Asthma: No Cancer: No Cardiac Disorders: No CVA: No COPD: No CHF: No DVT: No Dementia: No Diabetes: No GI Disorders: No Disorders: No HTN: No Hypercholesterolemia: No Liver Disease: No Seizures: No Thyroid Disease: No - Surgical History Abdominal Surgery: No Appendectomy: No Cardiac Surgery: No Cholecystectomy: No Lung Surgery: No Neurologic Surgery: No Orthopedic Surgery: No - Reproductive History (#): 1 Para: 0 Therapeutic (s) & number: No Spontaneous : 0 - Suicide/Smoking/Psychosocial Hx Smoking History: Never smoked Have you smoked in the past 12 months: No Hx Alcohol Use: No Drug/Substance Use Hx: No Substance Use Type: None Suture Removal/Wound Check PE - Physical Exam Laceration/Wound Check Symptoms: denies: Fever, Chills *Review of Systems - Review of Systems Constitutional: No: Chills, Fever *Physical Exam - Vital Signs Last Vital Signs Temp Pulse Resp BP Pulse Ox 98.4 F 62 16 99/56 L 99 04/23/18 12:49 04/23/18 12:49 04/23/18 12:49 04/23/18 12:49 04/23/18 12:49 - Physical Exam General Appearance: Yes: Nourished Extremity: positive: Other (L 3rd nail bed, no active bleeding or discharge noted, + aluminum clear film covering nail bed, FROM in finger) Moderate Sedation - Procedure Monitoring Vital Signs: Procedure Monitoring Vital Signs Temperature 98.4 F 04/23/18 12:49 Pulse Rate 62 04/23/18 12:49 Respiratory Rate 16 04/23/18 12:49 Blood Pressure 99/56 L 04/23/18 12:49 O2 Sat by Pulse Oximetry (%) 99 04/23/18 12:49 Medical Decision Making - Medical Decision Making 04/23/18 13:10 22y/o F R hand dominant presents with pain and swelling in L 3rd digit since this am, she is s/o distal phalanx opened fx 2 days ago, pt reports she removed the gauze yesterday for the first time, noticed dried blood. This morning the aluminum film that was sutured to nail bed was lifted, no f/c. she is on keflex. exam: no active bleed, no discharge, bandage applied loosely to finger tip finger splint applied pt advised to f/u surgeon tomorrow 04/23/18 19:51 *DC/Admit/Observation/Transfer Diagnosis at time of Disposition: Visit for wound check - Discharge Dispostion Disposition: HOME Condition at time of disposition: Good Decision to Admit order: No - Referrals Referrals: Lazaro Fermin MD [Primary Care Provider] - - Patient Instructions Printed Discharge Instructions: Skin Wound Additional Instructions: please call surgeon tomorrow for follow up keep area dry - Post Discharge Activity
== END 2018-04-23 13:44 | disposition home or self-care (01) ==
LOC: JERFT 12:33
PROC: 2W3KX1Z Immobilization of Left Finger using Splint (ICD-10-PCS; principal; 2018-04-23)
DX: S62.633D Displaced fracture of distal phalanx of left middle finger, subsequent encounter for fracture with routine healing (principal)
CPT/HCPCS: 99281-25

== ENCOUNTER 2019-03-01 15:55 | Emergency (ER) | payer OTHER ==
[2019-03-01 16:01] VITALS: BP 104/62; PULSE 81; TEMP 97.9; BMI 23.1
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
[2019-03-01] MEDS ORDERED: IBUPROFEN 600 MG TABLET (FP) PO ONE ×2 (16:35→16:37)
== END 2019-03-01 16:41 | disposition home or self-care (01) ==
LOC: JERFT 15:55
DX: S39.82XA Other specified injuries of lower back, initial encounter (principal); V43.52XA Car driver injured in collision with other type car in traffic accident, initial encounter; Y92.414 Local residential or business street as the place of occurrence of the external cause; Y93.89 Activity, other specified; Y99.9 Unspecified external cause status
CPT/HCPCS: 99281-25

== ENCOUNTER 2022-09-13 08:50 | Inpatient (IN) | payer OTHER ==
[2022-09-13] MEDS ORDERED: ELECTROLYTE-148 SOLN 1,000 ML IV SCH ×2 (12:00→15:45)
[2022-09-13] MEDS ORDERED: AMPICILLIN - 2 GM in SODIUM CHLORIDE 100 ML IVPB ONE (12:00)
[2022-09-13 12:01] VITALS: BMI 29.9
[2022-09-13] MEDS ORDERED: AMPICILLIN SODIUM 2 GM VIAL ONE (12:02)
[2022-09-13 12:12] LABS: INR 0.86 (0.83-1.09)
[2022-09-13 12:14] LABS: BASO % 0.4 % (0-2.0); EOS % 0.6 % (0-4.5); HEMATOCRIT 37.7 % (32.4-45.2); HEMOGLOBIN 12.6 GM/dL (10.7-15.3); LYMPH % 9.3 % (8-40); MCH 27.4 pg (25.7-33.7); MCHC 33.5 g/dl (32.0-36.0); MEAN CELL VOLUME 81.6 fl (80-96); MEAN PLT VOLUME 9.9 fl (7.5-11.1); MONO % 5.8 % (3.8-10.2); NEUT % 83.9 % (42.8-82.8); PLATELET COUNT 142 10^3/uL (134-434); RBC 4.62 M/mm3 (3.60-5.2); RDW 14.2 % (11.6-15.6); WHITE BLOOD COUNT 9.5 K/mm3 (4.0-10.0)
[2022-09-13 12:15] LABS: ACTIVATED PTT 25.6 SECONDS (25.2-36.5)
[2022-09-13] MEDS ORDERED: BUTORPHANOL TARTRATE 2 MG/ML VIAL IVPB ONE (13:00)
[2022-09-13] MEDS ORDERED: PROMETHAZINE HCL 25 MG/1 ML VIAL IVPB ONE (13:00)
[2022-09-13] MEDS ORDERED: BUTORPHANOL TARTRATE 1 MG/ML VIAL ONE (13:06)
[2022-09-13] MEDS ORDERED: PROMETHAZINE HCL 25 MG/1 ML VIAL ONE (13:07)
[2022-09-13 14:07] LABS: POTASSIUM 4.3 mmol/L (3.5-5.1)
[2022-09-13 14:09] LABS: BLOOD UREA NITROGEN 9.9 mg/dL (7-18); CALCIUM 9.3 mg/dL (8.5-10.1)
[2022-09-13 14:12] LABS: CREATININE 0.9 mg/dL (0.55-1.3)
[2022-09-13] MEDS ORDERED: AMPICILLIN SODIUM 1 GM VIAL ONE (15:51)
[2022-09-13] MEDS: AMPICILLIN - 1 GM in SODIUM CHLORIDE 100 ML IVPB SCH ×2 (16:10→21:03)
[2022-09-13 16:21] LABS: HIV INTERPRETATION NEGATIVE (NEGATIVE)
[2022-09-13] MEDS ORDERED: OXYTOCIN 20 UNITS in 0.9% NS 20 UNIT/1,000 ML INFUS.BAG IV ONE (17:10)
[2022-09-13 18:40] LABS: CORD BASE EXCESS -5.5 mmol/L (0-2); CORD HCO3 21.5 mmHg (20-29); CORD PCO2 47.7 mmHg (30-78); CORD pH 7.272 (7.14-7.44)
[2022-09-13 19:25] VITALS: RESP 18
[2022-09-13] MEDS ORDERED: BENZOCAINE 28 GM HEMORRHOIDAL OINTMENT TP PRN (19:29)
[2022-09-13] MEDS ORDERED: oxyCODONE HCL 5 MG TABLET PO PRN (19:29)
[2022-09-13] MEDS ORDERED: WITCH HAZEL 50% (TUCKS) 40 PAD/JAR PAD TP PRN (19:29)
[2022-09-13] MEDS ORDERED: BISACODYL 10 MG SUPP.RECT RC PRN (19:29)
[2022-09-13] MEDS ORDERED: METHYLERGONOVINE MALEATE 0.2 MG/1 ML AMP IM PRN (19:29)
[2022-09-13] MEDS ORDERED: BENZOCAINE 20% 57 GM BOTTLE TP PRN (19:29)
[2022-09-13] MEDS ORDERED: ACETAMINOPHEN 325 MG TABLET (FP) PO PRN (19:29)
[2022-09-13] MEDS ORDERED: OXYTOCIN 20 UNITS in 0.9% NS 20 UNIT/1,000 ML INFUS.BAG IV SCH (19:30)
[2022-09-14] MEDS: IBUPROFEN 600 MG TABLET (FP) PO PRN ×2 (04:40→10:57)
[2022-09-14 06:29] LABS: BASO % 0.8 % (0-2.0); EOS % 0.1 % (0-4.5); HEMOGLOBIN 9.4 GM/dL (10.7-15.3); LYMPH % 10.6 % (8-40); MCH 26.9 pg (25.7-33.7); MCHC 32.2 g/dl (32.0-36.0); MEAN CELL VOLUME 83.6 fl (80-96); MEAN PLT VOLUME 11.1 fl (7.5-11.1); MONO % 9.2 % (3.8-10.2); NEUT % 79.3 % (42.8-82.8); PLATELET COUNT 120 10^3/uL (134-434); RBC 3.47 M/mm3 (3.60-5.2); WHITE BLOOD COUNT 14.2 K/mm3 (4.0-10.0)
[2022-09-14] MEDS: PRENATAL VITAMINS W/ FOLIC ACID TABLET (FP) PO SCH (10:57)
[2022-09-14] MEDS ORDERED: SENNOSIDES/DOCUSATE COMBO (SENNA PLUS) TABLET (UD) PO PRN (22:00)
[2022-09-15] MEDS: PRENATAL VITAMINS W/ FOLIC ACID TABLET (FP) PO SCH (09:50)
[2022-09-15 11:06] VITALS: BP 117/77; PULSE 88; TEMP 98.2
== END 2022-09-15 18:55 | disposition home or self-care (01) | DRG 807 ==
LOC: JDEL 08:50 → JLDR 11:25 → J3W 20:20
PROVIDERS: ADMIT Obstetrics & Gynecology; ATTEND Obstetrics & Gynecology
PROC: 10E0XZZ Delivery of Products of Conception, External Approach (ICD-10-PCS; principal; 2022-09-10)
DX: O48.0 Post-term pregnancy (principal); Z37.0 Single live birth; Z3A.40 40 weeks gestation of pregnancy
CPT/HCPCS: 36415; 36600; 59025; 80048; 82803; 85025; 85610; 85730; 86780; 86850; 86900; 86901; 87389